=== PATIENT | male | born 1980 | race Caucasian/White ===

== ENCOUNTER 2019-03-30 07:08 | Emergency (ER) | payer OTHER ==
[2019-03-30 07:23] VITALS: BP 138/93
--- NOTE | 2019-03-30 07:39 | UC ---
Respiratory Complaint HPI - HPI Summary HPI Summary: 4 DAYS OF PRODUCTIVE COUGH, CONGESTION, SORE THROAT, PAIN WITH SWALLOWING AND POSTNASAL DRIP. A COUPLE OF DAYS AGO STARTED WITH LEFT EAR PAIN. NO DOCUMENTED FEVER. NO N/V. - History of Current Complaint Stated Complaint: sore throat, AND EAR ACHE Time Seen by Provider: 03/30/19 07:14 Hx Obtained From: Patient Onset/Duration: Gradual Onset, Lasting Days, Still Present Timing: Constant Severity Initially: Moderate Severity Currently: Moderate Pain Intensity: 6 Pain Scale Used: 0-10 Numeric Character: Cough: Productive Aggravating Factors: Nothing Alleviating Factors: Nothing Associated Signs And Symptoms: Positive: URI, Nasal Congestion. Negative: Dyspnea, Fever, Wheezing - Allergies/Home Medications Allergies/Adverse Reactions: Allergies Allergy/AdvReac Type Severity Reaction Status Date / Time environmental Allergy Sneezing Uncoded 03/30/19 07:23 Home Medications: Home Medications Allopurinol [Zyloprim 300 MG TAB] 1 tab PO DAILY 03/30/19 [History Confirmed ] Amlodipine Besylate/Valsartan [Amlodipine Besylate/Valsa 10-160 mg-] 1 tab PO DAILY 03/30/19 [History Confirmed 03/30/19] Bisoprolol/Hydrochlorothiazide [Bisoprolol-Hctz 10-6.25 mg Tab] 1 tab PO DAILY 03/30/19 [History Confirmed 03/30/19] Metformin HCl [Fortamet] 1 tab PO BID 03/30/19 [History Confirmed 03/30/19] Pravastatin Sodium 1 tab PO QPM 03/30/19 [History Confirmed 03/30/19] PMH/Surg Hx/FS Hx/Imm Hx - Additional Past Medical History Additional PMH: GOUT Endocrine History: Diabetes Cardiovascular History: Hypertension Other Cancer History: MELANOMA - EYE - Surgical History Surgical History: Yes Surgery Procedure, Year, and Place: 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 - Family History Known Family History: Positive: Non-Contributory - Social History Alcohol Use: Rare Substance Use Type: None Smoking Status (MU): Never Smoked Tobacco Review of Systems All Other Systems Reviewed And Are Negative: Yes Constitutional: Positive: Fatigue ENT: Positive: Sore Throat, Ear Ache, Nasal Discharge Respiratory: Positive: Cough Cardiovascular: Positive: Negative Gastrointestinal: Positive: Negative Physical Exam Triage Information Reviewed: Yes Appearance: Well-Appearing, No Pain Distress, Well-Nourished Vital Signs: Initial Vital Signs Temp 98 F 03/30/19 07:18 Pulse 92 03/30/19 07:18 Resp 18 03/30/19 07:18 BP 138/93 03/30/19 07:18 Pulse Ox 96 03/30/19 07:18 Laboratory Tests 03/30/19 07:29 Group A Strep Rapid Negative Vital Signs Reviewed: Yes Eyes: Positive: Conjunctiva Clear ENT: Positive: Hearing grossly normal, Pharyngeal erythema, Tonsillar swelling, Tonsillar exudate, Other - LEFT TM DULL, DUSKY. RIGHT TM NORMAL Neck: Positive: Supple, Nontender, No Lymphadenopathy Respiratory Exam: Normal Cardiovascular Exam: Normal Abdomen Description: Positive: Soft Musculoskeletal: Positive: No Edema Neurological: Positive: Alert Psychological: Positive: Age Appropriate Behavior Skin: Negative: Rashes Respiratory Course/Dx - Course Course Of Treatment: STREP TEST NEGATIVE HOWEVER PATIENT MAY BE DEVELOPING A LEFT SIDED OTITIS MEDIA AND DOES HAVE SWOLLEN TONSILS WITH SOME WHITE EXUDATE. GIVEN HIS CONSTELLATION OF SYMPTOMS AND PHYSICAL EXAM APPEARANCE WILL GO AHEAD AND COVER WITH ANTIBIOTICS. FOLLOW-UP IF NOT IMPROVING EXPECTED WITH TREATMENT. - Differential Dx/Diagnosis Provider Diagnosis: Tonsillitis, Left otitis media Discharge ED - Sign-Out/Discharge Documenting (check all that apply): Patient Departure All imaging exams completed and their final reports reviewed: No Studies - Discharge Plan Condition: Stable Disposition: HOME Prescriptions: Amoxicillin PO (*) [Amoxicillin 500 MG CAP*] 1,000 mg PO Q12H #40 cap Patient Education Materials: Ear Infection (ED), Upper Respiratory Infection ( ED), Tonsillitis (ED) Referrals: Ronald Lopez MD [Primary Care Provider] - If Needed Additional Instructions: YOUR SYMPTOMS MAY BE VIRALLY MEDIATED BUT GIVEN THE APPEARANCE OF YOUR TONSILS AND LEFT EAR DRUM WILL COVER YOU WITH ANTIBIOTICS. IF YOU START THE MEDICINE BE SURE TO TAKE IT FOR THE FULL COURSE. REST, HYDRATE, OTC MEDS NEEDED. SEEK FOLLOW-UP WITH YOUR PCP IF YOU ARE NOT IMPROVING OVER THE NEXT 1-2 WEEKS. USE OTC AFRIN FOR NASAL CONGESTION. 2 SPRAYS IN EACH NOSTRIL TWICE DAILY NEEDED. DO NOT USE FOR MORE THAN 3-4 DAYS IN A ROW TO PREVENT DEVELOPING REBOUND CONGESTION. - Billing Disposition and Condition Condition: STABLE Disposition: Home
== END 2019-03-30 08:10 | disposition home or self-care (01) ==
LOC: UCEAST 07:08
DX: J03.90 Acute tonsillitis, unspecified (principal); H66.92 Otitis media, unspecified, left ear; R05 Cough; E11.9 Type 2 diabetes mellitus without complications; I10 Essential (primary) hypertension; Z85.820 Personal history of malignant melanoma of skin
CPT/HCPCS: 87651; 99202; G0463